=== PATIENT | female | born 1960 | race Caucasian/White ===

== ENCOUNTER → 2016-11-14 | Outpatient (CLI) | payer OTHER ==
--- NOTE | 2016-11-14 11:24 | MM ---
Reason for exam: follow-up at short interval from prior study. Last mammogram was performed 11 months ago. History: Patient is postmenopausal, has history of breast cancer at age 53, and has history of high-risk lesion on a previous biopsy at age 53. Family history of breast cancer in aunt at age 52. Radiation therapy of the left breast, April 21, 2016. Lumpectomy of the left breast, March 22, 2016. Malignant MG pre op needle loc LT of the left breast, March 02, 2016. High risk US biopsy breast VAD LT of the left breast, December 25, 2015. High risk US biopsy breast add'l VAD LT of the left breast, December 25, 2015. Malignant MG pre op needle loc RT of the right breast, April 11, 2014. High risk MG stereo VAD BX RT of the right breast, March 12, 2014. Took hormonal contraceptives for 10 years beginning at age 19. Taking antineoplastic for 1 year beginning at age 53. Physical Findings: Nurse did not find any significant physical abnormalities on exam. MG Diagnostic Mammo w CAD ESTELA Bilateral CC and MLO view(s) were taken. Prior study comparison: December 25, 2015, left breast MG diagnostic mammo LT wo CAD. May 05, 2015, bilateral MG 3d diag mammo w/cad ESTELA. Stable benign calcifications. Post lumpectomy changes in the left breast. These results were verbally communicated with the patient and result sheet given to the patient on 11/14/16. ASSESSMENT: Benign, BI-RAD 2 RECOMMENDATION: Follow-up diagnostic mammogram of both breasts in 1 year.
== END | disposition home or self-care (01) ==
LOC: RADMAMWWP 10:16
PROVIDERS: ATTEND Radiology Diagnostic Radiology
DX: C50.912 Malignant neoplasm of unspecified site of left female breast (principal)

== ENCOUNTER → 2017-03-08 | Outpatient (CLI) | payer OTHER ==
--- NOTE | 2017-03-08 13:00 | BD ---
EXAMINATION TYPE: MG DEXA axial skeleton. DATE OF EXAM: 03/08/2017 COMPARISON: 2014 CLINICAL HISTORY: post menopausal Height: 5'6 Weight: 133 FRAX RISK QUESTIONS: Alcohol (3 or more units per day): no Family History (Parent hip fracture): no Glucocorticoids (More than 3mos): no (Ex: prednisone, prednisolone, methylprednisolone, dexamethasone, and hydrocortisone). History of Fracture in Adulthood: no Secondary Osteoporosis: 1. Type 1 Diabetes: no 2. Hyperthyroidism: no 3. Menopause before 45: no 4. Malnutrition: no 5. Chronic liver disease: no Rheumatoid Arthritis: no Current Tobacco Use: yes RISK FACTORS HISTORY OF: Postmenopausal woman: MEDICATIONS: Additional Medications: breast cancer med, pain pills, anti inflammatory, glaucoma, xanax as needed Additional History: breast cancer 2016, chemo, no radiation EXAM MEASUREMENTS: Bone mineral densitometry was performed using the [employer] System. Bone mineral density as measured about the Lumbar spine is: ----- L1-L4(G/cm2): 1.166 T Score Values are as follows: ----- L2: -1.0 ----- L3: -0.3 ----- L4: 2.0 ----- L1-L4: -0.1 Bone mineral density has: Decreased -0.9% since study of: 03/06/2015 Bone mineral density about the R hip (g/cm2): 0.954 Bone mineral density about the L hip (g/cm2): 0.962 T Score values are as follows: -----R Neck: -0.6 -----L Neck: -0.5 -----R Total: -0.4 -----L Total: -0.7 Bone mineral density has: Decreased -1.1% since study of: 03/06/2015 IMPRESSION: Normal (Values between +1 and -1 indicate normal bone mass). Consider repeating this study in 5 year s or sooner if there is some new clinical indication. NOTE: T-SCORE=SD OF THE YOUNG ADULT MEAN.
== END | disposition home or self-care (01) ==
LOC: RADBDWWP 10:05
PROVIDERS: ATTEND Internal Medicine Hematology & Oncology
DX: C50.212 Malignant neoplasm of upper-inner quadrant of left female breast (principal); N95.1 Menopausal and female climacteric states; Z79.890 Hormone replacement therapy
CPT/HCPCS: 77080

== ENCOUNTER → 2017-11-15 | Outpatient (CLI) | payer OTHER ==
--- NOTE | 2017-11-16 08:05 | MM ---
Reason for exam: additional evaluation requested from prior study. Last mammogram was performed 1 year ago. History: Patient is postmenopausal, has history of breast cancer at age 53, and has history of high-risk lesion on a previous biopsy at age 53. Family history of breast cancer in aunt at age 52. Radiation therapy of the left breast, April 21, 2016. Lumpectomy of the left breast, March 22, 2016. Malignant MG pre op needle loc LT of the left breast, March 02, 2016. High risk US biopsy breast VAD LT of the left breast, December 25, 2015. High risk US biopsy breast add'l VAD LT of the left breast, December 25, 2015. Malignant MG pre op needle loc RT of the right breast, April 11, 2014. High risk MG stereo VAD BX RT of the right breast, March 12, 2014. Took hormonal contraceptives for 10 years beginning at age 19. Taking antineoplastic for 1 year beginning at age 53. Physical Findings: Nurse did not find any significant physical abnormalities on exam. MG Diagnostic Mammo w CAD ESTELA Bilateral CC and MLO view(s) were taken. XCCL view(s) were taken of the right breast. XCCM, LM, and ML view(s) were taken of the left breast. Prior study comparison: November 14, 2016, bilateral MG diagnostic mammo w CAD ESTELA. December 25, 2015, left breast MG diagnostic mammo LT wo CAD. The breast tissue is heterogeneously dense. This may lower the sensitivity of mammography. There are lumpectomy changes in the left breast. There is no discrete abnormality. These results were verbally communicated with the patient and result sheet given to the patient on 11/15/17. ASSESSMENT: Benign, BI-RAD 2 RECOMMENDATION: Follow-up diagnostic mammogram of both breasts in 1 year.
== END | disposition home or self-care (01) ==
LOC: RADMAMWWP 11:08
PROVIDERS: ATTEND Radiology Diagnostic Radiology
DX: C50.912 Malignant neoplasm of unspecified site of left female breast (principal)
CPT/HCPCS: 77066

== ENCOUNTER → 2017-12-05 | Outpatient (CLI) | payer OTHER ==
--- NOTE | 2017-12-05 10:43 | CT ---
EXAMINATION TYPE: CT abdomen w con DATE OF EXAM: 12/05/2017 COMPARISON: 08/04/2015 HISTORY: 57-year-old female with epigastric pain TECHNIQUE: Contiguous axial scanning of the abdomen following administration of 100 ml Isovue 300 IV contrast. Delayed images through the kidneys and coronal/sagittal reconstructions performed. CT DLP: 268.2 mGycm Automated exposure control for dose reduction was used. FINDINGS: Heart normal size with trace anterior pericardial fluid. Tiny hiatal hernia redemonstrated. A 5 mm peripheral right basilar pulmonary nodule not previously included in the [id number]. No ple ural effusion. 6 month follow-up CT chest recommended. No focal liver lesion or biliary ductal dilatation. Portal venous system is patent Gallbladder, adrenal glands, kidneys, spleen, and pancreas appear within normal limits. No dilated small bowel, free fluid, or free air. Moderate to large stool burden. No pericolonic infla mmatory change within the visualized portions of the abdomen. No mesenteric or retroperitoneal lymphadenopathy. The right median arcuate ligament of the diaphragm slightly deflects the origin of the celiac axis, a xial image 16. There may be minimal narrowing here but no abnormal vessel dilatation distally. Bones: Degenerative disc disease and facet arthropathy mid to lower lumbar spine. No osseous destruct jonas process. IMPRESSION: 1. A 5 MM RIGHT BASILAR PULMONARY NODULE. SIX-MONTH FOLLOW-UP CT CHEST RECOMMENDED TO REASSESS AND AL SO TO SURVEY THE REMAINDER OF THE LUNGS. 2. THE RIGHT ARCUATE LIGAMENT OF THE DIAPHRAGM SLIGHTLY DEFLECTS THE ORIGIN OF THE CELIAC AXIS CAUSIN G VERY MILD NARROWING. THIS IS OF QUESTIONABLE CLINICAL SIGNIFICANCE ESPECIALLY THERE IS NO ABNORM AL VESSEL DILATATION DISTALLY. HOWEVER, GIVEN PATIENT'S EPIGASTRIC PAIN, CORRELATE CLINICALLY TO EXCL UDE THE POSSIBILITY OF MEDIAN ARCUATE LIGAMENT SYNDROME. 3. MODERATE STOOL BURDEN.
== END | disposition home or self-care (01) ==
LOC: RADCTMAIN 08:32
PROVIDERS: ATTEND Family Medicine
DX: R19.5 Other fecal abnormalities (principal); R10.84 Generalized abdominal pain; Z88.2 Allergy status to sulfonamides; Z88.0 Allergy status to penicillin
CPT/HCPCS: 74160; Q9967

== ENCOUNTER → 2017-12-08 | Outpatient (CLI) | payer OTHER ==
--- NOTE | 2017-12-08 08:13 | US ---
EXAMINATION TYPE: US gallbladder DATE OF EXAM: 12/08/2017 COMPARISON: CT abdomen from 3 days ago CLINICAL HISTORY: R10.84 ABD Pain. EXAM MEASUREMENTS: Liver Length: 11.8 cm Gallbladder Wall: 0.2 cm CBD: 0.2 cm Right Kidney: 9.6 x 4.0 x 4.8 cm Pancreas: Tail obscured by overlying bowel gas, visualized portions wnl Liver: wnl Gallbladder: wnl Evidence for sonographic Granger's sign: No CBD: wnl Right Kidney: No hydronephrosis or masses seen IMPRESSION: No gallstones or ultrasound evidence for acute cholecystitis
== END | disposition home or self-care (01) ==
LOC: RADUSWWP 07:30
PROVIDERS: ATTEND Family Medicine
DX: R10.84 Generalized abdominal pain (principal); Z88.0 Allergy status to penicillin; Z88.2 Allergy status to sulfonamides
CPT/HCPCS: 76705

== ENCOUNTER → 2018-06-08 | Outpatient (CLI) | payer OTHER ==
--- NOTE | 2018-06-08 10:22 | CT ---
EXAMINATION TYPE: CT chest w con DATE OF EXAM: 06/08/2018 COMPARISON: CT abdomen 12/05/2017 HISTORY: Follow up pulmonary nodule. CT DLP: 128.1 mGycm Automated exposure control for dose reduction was used. CONTRAST: CT scan of the chest is performed with IV Contrast, patient injected with 100 mL of Isovue M300. FINDINGS: LUNGS: There is biapical pleural thickening with subpleural nodularity bilaterally measuring less kati n 5 mm on the left and 6 mm on the right. Multiple subpleural nodules seen. There is no consolidative pneumonia. There is additional nodule within the superior segment left lower lobe measuring 5 mm. 5 mm nodule posterior segment right lower lobe. 5 mm nodule previously noted within the right lower lob e laterally is stable. No pleural effusion or pneumothorax. Mild diffuse emphysematous changes are no gonzalez. MEDIASTINUM: There are no greater than 1 cm hilar or mediastinal lymph nodes. No pericardial effusi on is seen. Coronary artery calcification noted. OTHER: Surgical change involving the left breast suggested. Hypertrophic and degenerative change spi ne. IMPRESSION: 1. There are multiple 6 mm less pulmonary nodules some of which are subpleural with biapical pleural thickening. Findings are too small to accurately characterize. There are changes of underlying COPD. Malignancy is not excluded. 3 month follow-up CT scan of the chest is recommended to confirm stabilit y of the lesions.
== END | disposition home or self-care (01) ==
LOC: RADCTMAIN 09:28
PROVIDERS: ATTEND Family Medicine
DX: R91.8 Other nonspecific abnormal finding of lung field (principal); J44.9 Chronic obstructive pulmonary disease, unspecified; Z88.0 Allergy status to penicillin; Z88.2 Allergy status to sulfonamides
CPT/HCPCS: 71260; Q9967

== ENCOUNTER → 2018-09-07 | Outpatient (CLI) | payer OTHER ==
--- NOTE | 2018-09-07 15:17 | CT ---
EXAMINATION TYPE: CT chest w con DATE OF EXAM: 09/07/2018 COMPARISON: 06/08/2018 HISTORY: Lung nodule, history of breast CA CT DLP: 142.6 mGycm, Automated exposure control for dose reduction was used. CONTRAST: Performed injected with 100 mL of Isovue 300. TECHNIQUE: Axial images were obtained at 5 mm thick sections. Reconstructed images are reviewed on [employer] computer in the coronal plane. FINDINGS: Portion of the thyroid visualized is normal. Postsurgical changes are within the left breas t. Bilateral apical thickening is present. This is stable from comparison. A smaller area measuring 0.3 cm in thickness in the posterior medial right midlung was present previo usly may be slightly smaller on the current exam. No enlarging nodules are identified. No enlarged mediastinal or hilar adenopathy is evident. The ascending aorta diameter at the level o f the main pulmonary artery is 2.9 cm. The main pulmonary artery diameter at the bifurcation is 2.[address] sections are obtained through the upper abdomen. Abdomen is essentially unremarkable. IMPRESSIONS: 1. Findings appear stable from May 2018. Continued monitoring is recommended. Follow-up exam in 3 months is recommended. These findings should be confirmed as stable over the course of 2 years.
== END | disposition home or self-care (01) ==
LOC: RADCTMAIN 09:34
PROVIDERS: ATTEND Radiology Diagnostic Radiology
DX: C50.912 Malignant neoplasm of unspecified site of left female breast (principal)
CPT/HCPCS: 71260; Q9967

== ENCOUNTER → 2018-11-16 | Outpatient (CLI) | payer OTHER ==
--- NOTE | 2018-11-16 10:38 | MM ---
Reason for exam: additional evaluation requested from prior study. Last mammogram was performed 1 year ago. History: Patient is postmenopausal, has history of breast cancer at age 53, and has history of high-risk lesion on a previous biopsy at age 53. Family history of breast cancer in aunt at age 52. Radiation therapy of the left breast, April 21, 2016. Lumpectomy of the left breast, March 22, 2016. Malignant MG pre op needle loc LT of the left breast, March 02, 2016. High risk US biopsy breast VAD LT of the left breast, December 25, 2015. High risk US biopsy breast add'l VAD LT of the left breast, December 25, 2015. Malignant MG pre op needle loc RT of the right breast, April 11, 2014. High risk MG stereo VAD BX RT of the right breast, March 12, 2014. Took hormonal contraceptives for 10 years beginning at age 19. Taking antineoplastic for 1 year beginning at age 53. Physical Findings: Nurse did not find any significant physical abnormalities on exam. MG Diagnostic Mammo w CAD ESTELA Bilateral CC and MLO view(s) were taken. Prior study comparison: November 15, 2017, bilateral MG diagnostic mammo w CAD ESTELA. November 14, 2016, bilateral MG diagnostic mammo w CAD ESTELA. The breast tissue is heterogeneously dense. This may lower the sensitivity of mammography. There is chronic nodularity in the right anterior inferior aspect. Stable post surgical change left breast. No significant new findings when compared with previous films. These results were verbally communicated with the patient and result sheet given to the patient on 11/16/18. ASSESSMENT: Benign, BI-RAD 2 RECOMMENDATION: Routine screening mammogram of both breasts in 1 year.
--- NOTE | 2018-11-16 11:27 | CT ---
EXAMINATION TYPE: CT chest w con DATE OF EXAM: 11/16/2018 COMPARISON: 09/07/2018 HISTORY: Malignant neoplasm of upper inner quadrant CT DLP: 354 mGycm Automated exposure control for dose reduction was used. CONTRAST: CT scan of the chest is performed with IV Contrast, patient injected with 100 ml mL of Isovue 300. FINDINGS: LUNGS: There is stable biapical scarring noted. Stable right lower lobe pulmonary nodule measuring 3. 5 mm image 45 of 62. Previously described medial nodular density mid lung is not reproduced at this t rufus. Scattered parenchymal scarring. Upper lobe emphysematous change. No evidence for infiltrate or m ass. MEDIASTINUM: There are no greater than 1 cm hilar or mediastinal lymph nodes. No pericardial effusi on is seen. Thoracic aorta is of normal caliber. The heart is not enlarged. UPPER ABDOMEN: No significant abnormality appreciated. OTHER: Postoperative changes of left-sided lumpectomy. IMPRESSION: 1. Pulmonary nodularity as discussed. Follow-up in 6 months is advised.
== END | disposition home or self-care (01) ==
LOC: RADCTMAIN 09:14
PROVIDERS: ATTEND Radiology Diagnostic Radiology
DX: C50.212 Malignant neoplasm of upper-inner quadrant of left female breast (principal)
CPT/HCPCS: 77066; 71260; Q9967

== ENCOUNTER → 2019-03-29 | Outpatient (CLI) | payer OTHER ==
--- NOTE | 2019-03-29 10:57 | BD ---
EXAMINATION TYPE: Axial Bone Density DATE OF EXAM: 03/29/2019 COMPARISON: 2017 CLINICAL HISTORY: Postmenopausal female. Osteoporosis screening. History of breast cancer. Height: 5 ft 6 1/4 in Weight: 127 FRAX RISK QUESTIONS: Family History (Parent hip fracture): YES Glucocorticoids (More than 3mos): POTENTIALLY CREAM SHE USES FOR EXCEMA (Ex: prednisone, prednisolone, methylprednisolone, dexamethasone, and hydrocortisone). Secondary Osteoporosis: Rheumatoid Arthritis: YES Current Tobacco Use: YES RISK FACTORS HISTORY OF: Active: YES Postmenopausal woman: STOPPED WHEN TREATED FOR BREAST CANCER 2013 MEDICATIONS: Additional Medications: ESTROGEN HEENA,HYDROCODONE, HYDROXYZINE, XANAX, LATANOPROST, HALOBETASOL, Additional History: BREAST CANCER 2013 EXAM MEASUREMENTS: Bone mineral densitometry was performed using the [employer] System. Bone mineral density as measured about the Lumbar spine is: ----- L1-L4(G/cm2): 1.171 T Score Values are as follows: ----- L2: -1.0 ----- L3: -0.1 ----- L4: 1.8 ----- L1-L4: -0.1 Bone mineral density has: INCREASED 0.2 % since study of: 2017 Bone mineral density about the R hip (g/cm2): 0.971 Bone mineral density about the L hip (g/cm2): 0.947 T Score values are as follows: -----R Neck: -0.5 -----L Neck: -0.7 -----R Total: -0.6 -----L Total: -0.7 Bone mineral density has: DECREASED -1.0 % since study of: 2017 IMPRESSION: Normal (Values between +1 and -1 indicate normal bone mass). Consider repeating this study in 5 year s or sooner if there is some new clinical indication. NOTE: T-SCORE=SD OF THE YOUNG ADULT MEAN.
== END | disposition home or self-care (01) ==
LOC: RADBDWWP 10:05
PROVIDERS: ATTEND Internal Medicine Hematology & Oncology
DX: C50.212 Malignant neoplasm of upper-inner quadrant of left female breast (principal); N95.1 Menopausal and female climacteric states; Z79.890 Hormone replacement therapy
CPT/HCPCS: 77080

== ENCOUNTER → 2019-05-27 | Outpatient (CLI) | payer OTHER ==
--- NOTE | 2019-05-28 14:52 | CT ---
EXAMINATION TYPE: CT ChestAbdPelvis w con DATE OF EXAM: 05/27/2019 INDICATION: lung nodules, colon polyps. hx of breast ca. COMPARISON: 11/16/2018 CT DLP: 453.6 mGycm CONTRAST: Performed with Oral Contrast and with IV Contrast, patient injected with 100 mL of Isovue 300. TECHNIQUE: Axial images at 5 mm thick sections. Reconstructed images in the coronal plane. Delayed images through the kidneys. FINDINGS: CT CHEST: Portion of the thyroid visualized is normal. There is some scarring at the bilateral lung apices which appears stable from comparison. Emphysemato us changes present. There is a 0.4 cm nodular density in the periphery of the right lower lobe, stabl e from comparison. Series 5 image 41. Ascending thoracic aorta at the level of main pulmonary artery is 3.1 cm. Main pulmonary bifurcation is 2.5 cm. No enlarged mediastinal or hilar adenopathy is evident. CT ABDOMEN: Liver: Normal Spleen: Normal Pancreas: Normal Adrenal glands: The adrenal glands are normal. Gallbladder: Normal Kidneys: No masses are evident. No hydronephrosis is present. No cysts are present. Delayed images were obtained through the kidneys, which remain unremarkable. Aorta: Vascular calcification is within the aorta. Inferior vena cava: Normal. CT PELVIS: Loops of bowel within the abdomen and pelvis are normal. Fecal debris is within the colon. Scatte red diverticuli without acute diverticulitis is within the sigmoid colon There are loops of bowel whi ch are incompletely distended or lack oral contrast limiting their evaluation. Appendix: Normal as visualized. Urinary bladder: Normal. Genitourinary structures: Uterus and adnexal regions appear normal. Osseous structures: No suspicious lytic or sclerotic lesions are evident. IMPRESSIONS: 1. Stable nodule right lower lobe. Continued monitoring is recommended with follow-up CT chest in 6 [facility]. 2. Sigmoid diverticulosis without acute diverticulitis.
== END | disposition home or self-care (01) ==
LOC: RADCTMAIN 15:37
PROVIDERS: ATTEND Surgery
DX: Z09 Encounter for follow-up examination after completed treatment for conditions other than malignant neoplasm (principal); K57.30 Diverticulosis of large intestine without perforation or abscess without bleeding; Z86.010 Personal history of colon polyps
CPT/HCPCS: 74177; Q9967; 71260

== ENCOUNTER → 2019-05-27 | Outpatient (CLI) | payer OTHER | END | disposition home or self-care (01) | LOC: RADCTMAIN 15:32 | PROVIDERS: ATTEND Radiology Diagnostic Radiology | DX: Z53.9 Procedure and treatment not carried out, unspecified reason (principal) ==

== ENCOUNTER → 2019-11-18 | Outpatient (CLI) | payer OTHER ==
--- NOTE | 2019-11-18 13:47 | MM ---
Reason for exam: additional evaluation requested from prior study. Last mammogram was performed 1 year ago. History: Patient is postmenopausal, has history of breast cancer at age 53, and has history of high-risk lesion on a previous biopsy at age 53. Family history of breast cancer in aunt at age 52. Radiation therapy of the left breast, April 21, 2016. Lumpectomy of the left breast, March 22, 2016. Malignant MG pre op needle loc LT of the left breast, March 02, 2016. High risk US biopsy breast VAD LT of the left breast, December 25, 2015. High risk US biopsy breast add'l VAD LT of the left breast, December 25, 2015. Malignant MG pre op needle loc RT of the right breast, April 11, 2014. High risk MG stereo VAD BX RT of the right breast, March 12, 2014. Took hormonal contraceptives for 10 years beginning at age 19. Taking antineoplastic for 1 year beginning at age 53. Physical Findings: Nurse did not find any significant physical abnormalities on exam. MG Diagnostic Mammo w CAD ESTELA Bilateral CC and MLO view(s) were taken. Prior study comparison: November 16, 2018, bilateral MG diagnostic mammo w CAD ESTELA. November 15, 2017, bilateral MG diagnostic mammo w CAD ESTELA. The breast tissue is heterogeneously dense. This may lower the sensitivity of mammography. Post surgical and post therapy changes left breast. No significant new findings when compared with previous films. These results were verbally communicated with the patient and result sheet given to the patient on 11/18/19. ASSESSMENT: Benign, BI-RAD 2 RECOMMENDATION: Follow-up diagnostic mammogram of both breasts in 1 year.
== END | disposition home or self-care (01) ==
LOC: RADMAMWWP 13:02
PROVIDERS: ATTEND Radiology Diagnostic Radiology
DX: C50.212 Malignant neoplasm of upper-inner quadrant of left female breast (principal)
CPT/HCPCS: 77066

== ENCOUNTER → 2019-12-23 | Outpatient (CLI) | payer OTHER ==
--- NOTE | 2019-12-23 08:14 | CT ---
EXAMINATION TYPE: CT chest wo con DATE OF EXAM: 12/23/2019 COMPARISON: 05/27/[address] abdomen 12/05/2017 HISTORY: follow up to lung nodule, history of breast CA CT DLP: 137.[address] of the chest was performed with lung and mediastinal window settings submitted. The la ck of contrast limits evaluation of the vascular, mediastinal and parenchymal structures including th e upper abdomen. LUNGS: Stable 3.6 mm right lower lobe pulmonary nodule. No additional distinct nodules seen. Biapical scarring. Subpleural fibrosis left upper lobe anteriorly post radiation related. No evidence for mas s or infiltrate. No pleural effusion. No CT evidence of interstitial lung disease. MEDIASTINUM/LAMINE: Thoracic aorta is of normal caliber with limited evaluation given lack of contrast . The heart is not enlarged. No evidence for mediastinal mass. No lymph nodes greater than 1cm. UPPER ABDOMEN: No significant abnormality is seen. OTHER: No significant other abnormality. IMPRESSION: 1. Right lower lobe pulmonary nodule stable dating back to 2018 and therefore is likely to be benign .
== END | disposition home or self-care (01) ==
LOC: RADCTMAIN 07:13
PROVIDERS: ATTEND Internal Medicine Hematology & Oncology
DX: R91.1 Solitary pulmonary nodule (principal); C50.212 Malignant neoplasm of upper-inner quadrant of left female breast; Z88.0 Allergy status to penicillin; Z88.2 Allergy status to sulfonamides
CPT/HCPCS: 71250

== ENCOUNTER → 2020-11-18 | Outpatient (CLI) | payer OTHER ==
--- NOTE | 2020-11-20 09:33 | MM ---
Reason for exam: additional evaluation requested from prior study. Last mammogram was performed 1 year ago. History: Patient is postmenopausal, has history of breast cancer at age 53, and has history of high-risk lesion on a previous biopsy at age 53. Family history of breast cancer in aunt at age 52. Radiation therapy of the left breast, April 21, 2016. Lumpectomy of the left breast, March 22, 2016. Malignant MG pre op needle loc LT of the left breast, March 02, 2016. High risk US biopsy breast VAD LT of the left breast, December 25, 2015. High risk US biopsy breast add'l VAD LT of the left breast, December 25, 2015. Malignant MG pre op needle loc RT of the right breast, April 11, 2014. High risk MG stereo VAD BX RT of the right breast, March 12, 2014. Took hormonal contraceptives for 10 years beginning at age 19. Taking antineoplastic beginning at age 53. Physical Findings: Nurse did not find any significant physical abnormalities on exam. MG Diagnostic Mammo w CAD ESTELA Bilateral CC, MLO, and XCCL view(s) were taken. Prior study comparison: November 18, 2019, bilateral MG diagnostic mammo w CAD ESTELA. November 16, 2018, bilateral MG diagnostic mammo w CAD ESTELA. The breast tissue is heterogeneously dense. This may lower the sensitivity of mammography. Post left lumpectomy with surgical clips, stable. No significant new findings when compared with previous films. These results were verbally communicated with the patient and result sheet given to the patient on 11/18/20. ASSESSMENT: Benign, BI-RAD 2 RECOMMENDATION: Routine screening mammogram of both breasts in 1 year.
== END | disposition home or self-care (01) ==
LOC: RADMAMWWP 13:05
PROVIDERS: ATTEND Radiology Diagnostic Radiology
DX: R92.2 Inconclusive mammogram (principal); Z78.0 Asymptomatic menopausal state; Z85.3 Personal history of malignant neoplasm of breast; Z80.3 Family history of malignant neoplasm of breast
CPT/HCPCS: 77066

== ENCOUNTER → 2021-04-01 | Outpatient (CLI) | payer OTHER ==
--- NOTE | 2021-04-01 13:51 | BD ---
EXAMINATION TYPE: Axial Bone Density DATE OF EXAM: 04/01/2021 COMPARISON: NONE CLINICAL HISTORY: Height: 5 FT 6 1/4 IN Weight: 121 FRAX RISK QUESTIONS: Alcohol (3 or more units per day): NO Family History (Parent hip fracture): YES Glucocorticoids (More than 3mos): NO (Ex: prednisone, prednisolone, methylprednisolone, dexamethasone, and hydrocortisone). History of Fracture in Adulthood: NO Secondary Osteoporosis: 1. Type 1 Diabetes: NO 2. Hyperthyroidism: NO 3. Menopause before 45: NO 4. Malnutrition: NO 5. Chronic liver disease: NO Rheumatoid Arthritis: YES Current Tobacco Use: YES RISK FACTORS HISTORY OF: Surgery to Spine/Hip(right/left)/Wrist (right/left): NO Family History of Osteoporosis: NO Active: YES Diet low in dairy products/other sources of calcium: NO Postmenopausal woman: YES Take estrogen and/or progesterone medications: NO Lost more than 2 inches in height since high school: YES Poor Health: GOOD Hyperparathyroidism: NO Adrenal Insufficiency: NO MEDICATIONS: Prednisone or other steroids: How Long: Thyroid Medications: Which medication: How Long: Osteoporosis Medications: Which medication: How Long: Additional Medications: HORMONE HEENA, HYDROCODONE, OINTMENT FOR EXCEMA, EYEDROPS FOR GLAUCOMA,MULTI, EXEMESTANE, HYDROXZINE,LATANOPROST, Additional History: BREAST CANCER 2014 RADIATION ONLY EXAM MEASUREMENTS: Bone mineral densitometry was performed using the [employer] System. Bone mineral density as measured about the Lumbar spine is: ----- L1-L4(G/cm2): 1.173 T Score Values are as follows: ----- L2: -0.8 ----- L3: 0.1 ----- L4: 1.5 ----- L1-L4: -0.1 Bone mineral density has: INCREASED 0.2 % since study of: 2019 Bone mineral density about the R hip (g/cm2): 0.883 Bone mineral density about the L hip (g/cm2): 0.913 T Score values are as follows: -----R Neck: -1.1 -----L Neck: -0.9 -----R Total: -1.1 -----L Total: -1.2 Bone mineral density has: DECREASED -7.0 % since study of: 2019 IMPRESSION: Osteopenia (T Score between -2.5 and -1). There is slightly increased risk of fracture and the patient may be considered for treatment. Re-Screen 2-5 years. NOTE: T-SCORE=SD OF THE YOUNG ADULT MEAN.
== END | disposition home or self-care (01) ==
LOC: RADBDWWP 11:25
PROVIDERS: ATTEND Internal Medicine Hematology & Oncology
DX: M85.89 Other specified disorders of bone density and structure, multiple sites (principal); Z85.3 Personal history of malignant neoplasm of breast
CPT/HCPCS: 77080

== ENCOUNTER → 2021-11-19 | Outpatient (CLI) | payer OTHER ==
--- NOTE | 2021-11-23 08:07 | MM ---
Reason for Exam: Screening (asymptomatic). Last mammogram was performed 1 year(s) and 1 month(s) ago. Patient History: Menarche at age 18. First Full-Term at age 28. Postmenopausal. Breast cancer, left, age 53. Hormonal Contraceptives for 10 years from age 19 until age 28. 03/22/2016, Lumpectomy on the Left side. 03/02/2016, Malignant Core Biopsy on the left side. 12/25/2015, High risk Core Biopsy on the left side. 12/25/2015, High risk Core Biopsy on the left side. 04/11/2014, Malignant Core Biopsy on the right side. 03/12/2014, High risk Core Biopsy on the right side. 04/21/2016, Radiation Therapy on the left side. Maternal aunt had breast cancer, age 52. Prior Study Comparison: 11/16/2018 Bilateral Diagnostic Mammogram, [facility]. 11/18/2019 Bilateral Diagnostic Mammogram, [facility]. 11/18/2020 Bilateral Diagnostic Mammogram, [facility]. Tissue Density: The breast tissue is heterogeneously dense. This may lower the sensitivity of mammography. Findings: Analyzed By CAD. There is no suspicious group of microcalcifications or new suspicious mass in either breast. Postoperative changes left breast. Stable benign calcifications. Overall Assessment: Benign, BI-RAD 2 Management: Screening Mammogram of both breasts in 1 year. A clinical breast exam by your physician is recommended on an annual basis and results should be correlated with mammographic findings. Electronically signed and approved by: Sanjay Hennessy M.D. Radiologis
== END | disposition home or self-care (01) ==
LOC: RADMAMWWP 16:33
PROVIDERS: ATTEND Radiology Diagnostic Radiology
DX: Z12.31 Encounter for screening mammogram for malignant neoplasm of breast (principal); Z78.0 Asymptomatic menopausal state; Z80.3 Family history of malignant neoplasm of breast
CPT/HCPCS: 77067

== ENCOUNTER → 2022-11-21 | Outpatient (CLI) | payer OTHER ==
--- NOTE | 2022-11-23 07:48 | MM ---
Reason for Exam: Screening (asymptomatic). Last screening mammogram was performed 12 month(s) ago. Patient History: Menarche at age 18. First Full-Term at age 28. Postmenopausal. Breast cancer, left, age 53. Colorectal cancer, age 62. Hormonal Contraceptives for 10 years from age 19 until age 28. 03/22/2016, Lumpectomy on the Left side. 03/02/2016, Malignant Core Biopsy on the left side. 12/25/2015, High risk Core Biopsy on the left side. 12/25/2015, High risk Core Biopsy on the left side. 04/11/2014, Malignant Core Biopsy on the right side. 03/12/2014, High risk Core Biopsy on the right side. 04/21/2016, Radiation Therapy on the left side. Maternal aunt had breast cancer, age 52. Prior Study Comparison: 11/18/2019 Bilateral Diagnostic Mammogram, [facility]. 11/18/2020 Bilateral Diagnostic Mammogram, [facility]. 11/19/2021 Bilateral MG screening mammo w CAD, [facility]. Tissue Density: The breast tissue is heterogeneously dense. This may lower the sensitivity of mammography. Findings: Analyzed By CAD. Asymmetric nodular density far posterior right cc view measuring 5. Centimeters from the nipple. Additional views are recommended. Postoperative changes left breast remain stable. Benign calcifications noted. Overall Assessment: Incomplete: need additional imaging evaluation, BI-RAD 0 Management: Diagnostic Mammogram of the right breast. . Patient should continue monthly self-breast exams. A clinical breast exam by your physician is recommended on an annual basis. This exam should not preclude additional follow-up of suspicious palpable abnormalities. Note on Felisha scores and lifetime risk: 1. A Felisha score greater than 3% is considered moderate risk. If this is the case, consider specialist referral to assess eligibility for a risk reducing agent. 2. If overall lifetime risk for the development of breast cancer is 20% or higher, the patient may qualify for future screening with alternating mammogram and breast MRI. Electronically signed and approved by: Sanjay Hennessy M.D. Radiologis
== END | disposition home or self-care (01) ==
LOC: RADMAMWWP 11:09
PROVIDERS: ATTEND Radiology Radiation Oncology
DX: Z12.31 Encounter for screening mammogram for malignant neoplasm of breast (principal); C50.212 Malignant neoplasm of upper-inner quadrant of left female breast; Z78.0 Asymptomatic menopausal state; Z80.3 Family history of malignant neoplasm of breast
CPT/HCPCS: 77063; 77067

== ENCOUNTER → 2023-11-27 | Outpatient (CLI) | payer OTHER ==
--- NOTE | 2023-11-27 11:43 | MM ---
Reason for Exam: Hx of breast cancer, conservation therapy. Last screening mammogram was performed 12 month(s) ago. Patient History: Menarche at age 18. First Full-Term at age 28. Postmenopausal. Breast cancer, left, age 53. Colorectal cancer, age 62. Hormonal Contraceptives for 10 years from age 19 until age 28. 03/22/2016, Lumpectomy on the Left side. 03/02/2016, Malignant Core Biopsy on the left side. 12/25/2015, High risk Core Biopsy on the left side. 12/25/2015, High risk Core Biopsy on the left side. 04/11/2014, Malignant Core Biopsy on the right side. 03/12/2014, High risk Core Biopsy on the right side. 04/21/2016, Radiation Therapy on the left side. Maternal aunt had breast cancer, age 52. Prior Study Comparison: 11/14/2016 Bilateral Diagnostic Mammogram, [facility]. 11/15/2017 Bilateral Diagnostic Mammogram, [facility]. 11/16/2018 Bilateral Diagnostic Mammogram, [facility]. 11/18/2019 Bilateral Diagnostic Mammogram, [facility]. 11/18/2020 Bilateral Diagnostic Mammogram, [facility]. 11/19/2021 Bilateral MG screening mammo w CAD, [facility]. 11/21/2022 Bilateral MG 3D screening mammo w/cad, [facility]. 12/13/2022 Right MG 3D work up w/cad RT, [facility]. Tissue Density: There are scattered areas of fibroglandular density. Findings: Analyzed By CAD. The pattern is stable. No significant interval changes. Multiple surgical clips from prior lumpectomy are present on the left. Benign calcification is present on the left. No suspicious groups of microcalcifications, spiculated or lobular masses, architectural distortion or other secondary signs of malignancy are mammographically apparent. Overall Assessment: Benign, BI-RAD 2 Management: Screening Mammogram of both breasts in 1 year. A negative mammogram report should not preclude additional follow up of suspicious palpable abnormalities. Patient should continue monthly self breast exam. A clinical breast exam by your physician is recommended on an annual basis and results should be correlated with mammographic findings. Note on Felisha scores and lifetime risk: 1. A Felisha score greater than 3% is considered moderate risk. If this is the case, consider specialist referral to assess eligibility for a risk reducing agent. 2. If overall lifetime risk for the development of breast cancer is 20% or higher, the patient may qualify for future screening with alternating mammogram and breast MRI. Electronically signed and approved by: Rom Soto D.O. Radiologis
== END | disposition home or self-care (01) ==
LOC: RADMAMWWP 11:07
PROVIDERS: ATTEND Radiology Radiation Oncology
DX: C50.212 Malignant neoplasm of upper-inner quadrant of left female breast (principal); R92.323 Mammographic fibroglandular density, bilateral breasts; Z80.3 Family history of malignant neoplasm of breast; Z78.0 Asymptomatic menopausal state; Z79.811 Long term (current) use of aromatase inhibitors
CPT/HCPCS: 77066; G0279; 77062

== ENCOUNTER → 2024-02-12 | Outpatient (CLI) | payer OTHER ==
--- NOTE | 2024-02-12 12:08 | CT ---
EXAMINATION TYPE: CT chest wo con DATE OF EXAM: 02/12/2024 COMPARISON: 12/13/2022 HISTORY: nodules CT DLP: [address] of the chest was performed with lung and mediastinal window settings submitted. The la ck of contrast limits evaluation of the vascular, mediastinal and parenchymal structures including th e upper abdomen. LUNGS: Again noted is biapical scarring. Mild emphysematous changes noted. Mild scattered subpleural fibrosis left upper lobe. This could reflect post radiation therapy change. Stable 4.5 mm pulmonary n odule right lower lobe image 43. No additional pulmonary nodules evident. MEDIASTINUM/LAMINE: Thoracic aorta is of normal caliber with limited evaluation given lack of contrast . The heart is not enlarged. No evidence for mediastinal mass. No lymph nodes greater than 1cm. UPPER ABDOMEN: No significant abnormality is seen. OTHER: No significant other abnormality. IMPRESSION: 1. Stable left 4.5 mm right lower lobe pulmonary nodule. 2. Mild post radiation therapy change left upper lobe with minimal fibrosis seen. [facility], , 02/12/2024 12:06 PM
--- NOTE | 2024-02-19 21:33 | BD ---
EXAMINATION TYPE: Axial Bone Density DATE OF EXAM: 02/12/2024 CLINICAL HISTORY: 63 years old Female. ICD-10 CODE: M81.0 OSTEOPOROSIS Height: 67 Weight: 122 FRAX RISK QUESTIONS: Alcohol (3 or more units per day): no Family History (Parent hip fracture): yes Glucocorticoids (More than 3mos): no (Ex: prednisone, prednisolone, methylprednisolone, dexamethasone, and hydrocortisone). History of Fracture in Adulthood: no Secondary Osteoporosis: 1. Type 1 Diabetes: no 2. Hyperthyroidism: no 3. Menopause before 45: no 4. Malnutrition: no 5. Chronic liver disease: no Rheumatoid Arthritis: no Current Tobacco Use: yes RISK FACTORS HISTORY OF: Surgery to Spine/Hip(right/left)/Wrist (right/left): no EXAM MEASUREMENTS: Bone mineral densitometry was performed using the [employer] System. Bone mineral density as measured about the Lumbar spine is: ----- L1-L4(G/cm2): 1.215 T Score Values are as follows: ----- L1: -1.4 ----- L2: -1.5 ----- L3: 0.8 ----- L4: 2.8 ----- L1-L4: 0.3 Z Score Values are as follows: ----- L1: 0.3 ----- L2: 0.3 ----- L3: 2.5 ----- L4: 4.5 ----- L1-L4: 2.0 Bone mineral density has: increased 3.0 study of 04.01.2021 Bone mineral density about the R hip (g/cm2): 0.859 Bone mineral density about the L hip (g/cm2): 0.826 T Score values are as follows: -----R Neck: -1.1 -----L Neck: -1.2 -----R Total: -1.2 -----L Total: -1.4 Z Score values are as follows: -----R Neck: 0.5 -----L Neck: 0.4 -----R Total: 0.1 -----L Total: -0.1 Bone mineral density has: decreased -2.2 % since study of: 04.01.2021 FRAX%s: The graph provided illustrates a 13.2% chance for a major osteoporotic fx and a 1.0% chance f or the hips probability for fx in 10 years time. IMPRESSION: Osteopenia (T Score between -2.5 and -1). There is slightly increased risk of fracture and the patient may be considered for treatment. Re-Screen 2-5 years. NOTE: T-SCORE=SD OF THE YOUNG ADULT MEAN. [facility], , 02/19/2024 9:31 PM
== END | disposition home or self-care (01) ==
LOC: RADCTMAIN 11:04
PROVIDERS: ATTEND Internal Medicine Hematology & Oncology
DX: C50.212 Malignant neoplasm of upper-inner quadrant of left female breast (principal); J84.10 Pulmonary fibrosis, unspecified; M81.0 Age-related osteoporosis without current pathological fracture; M85.89 Other specified disorders of bone density and structure, multiple sites; M51.9 Unspecified thoracic, thoracolumbar and lumbosacral intervertebral disc disorder; R91.1 Solitary pulmonary nodule; Z92.3 Personal history of irradiation; Z87.39 Personal history of other diseases of the musculoskeletal system and connective tissue
CPT/HCPCS: 71250; 77080